=== PATIENT | female | born 1955 | race Caucasian/White ===

== ENCOUNTER 2019-12-07 17:28 | Inpatient (IN) | payer BC, OTHER ==
[2019-12-07] VITALS (8 sets, daily range): BP systolic 111–142; BP diastolic 74–97
[~2019-12-07] VITALS: Ht 167 cm; Wt 74.1 kg
--- NOTE | 2019-12-07 17:57 | NUR ---
PTS PULSE OX 88% ON 4L NC ET OXYGEN INCREASED TO 4LNC
[2019-12-07] MEDS ORDERED: IBUPROFEN 800 MG (MOTRIN) TAB PO ONE (18:00)
[2019-12-07] MEDS ORDERED: ACETAMINOPHEN 325 MG TABLET PO ONE (18:00)
--- NOTE | 2019-12-07 18:04 | ED Cough/URI ---
General Chief Complaint: Respiratory Problems Stated Complaint: SOA Nursing Triage Note: SENT OVER FROM DR BAHENA OFFICE FOR SOA Sepsis Screen: No Definite Risk Source: patient Exam Limitations: no limitations History of Present Illness Date Seen by Provider: Dec 07, 2019 Time Seen by Provider: 18:02 Initial Comments To ER by private vehicle from Dr. Reyna's office with reports of shortness of breath and cough. This has been present for about 2 weeks. Does not have any history of known asthma or COPD or lung disease. She states that she hasn't had fevers but upon arrival here she is febrile at 101. Oxygen saturation 80% on room air upon arrival. She states she has not been around any known ill contacts. has been giving her some of his leftover keflex from a foot infection but denies any improvement. Timing/Duration: constant Severity/Quality: moderate Associated Symptoms: cough, shortness of breath Allergies and Home Medications Allergies Coded Allergies: No Known Drug Allergies (Unverified , 12/07/19) Patient Home Medication List Home Medication List Reviewed: Yes Review of Systems Review of Systems Constitutional: see HPI, chills, fever EENTM: see HPI Respiratory: see HPI, cough Cardiovascular: no symptoms reported Genitourinary: no symptoms reported Musculoskeletal: no symptoms reported Skin: no symptoms reported Psychiatric/Neurological: No Symptoms Reported Hematologic/Lymphatic: No Symptoms Reported Past Jgjzpwm-Wwscgg-Hdmmda Hx Patient Social History Recent Foreign Travel: No Contact w/Someone Who Travel: No Recent Infectious Disease Expo: No Physical Exam Vital Signs - First Documented 12/07/19 17:30 Temp 38.4 Pulse 112 Resp 20 B/P (MAP) 154/94 (114) Pulse Ox 80 O2 Delivery Nasal Cannula O2 Flow Rate 3.00 Capillary Refill : Less Than 3 Seconds Height: '" Weight: lbs. oz. kg; 26.00 BMI Method: General Appearance: WD/WN, no apparent distress, other (oxygen saturation 80% on room air. Up to 89-90% on 3 L.) Eyes: Bilateral Eye Normal Inspection, Bilateral Eye PERRL, Bilateral Eye EOMI Neck: non-tender, full range of motion Respiratory: no accessory muscle use, decreased breath sounds (decreased air movement and crackles on left), other (tachypnea) Cardiovascular: other (tachycardia with a rate of about 105-110) Gastrointestinal: normal bowel sounds, non tender Neurologic/Psychiatric: alert, normal mood/affect, oriented x 3 Skin: normal color, warm/dry Focused Exam Lactate Level 12/07/19 17:50: Lactic Acid Level 1.21 Time of Focused Exam: 20:16 Respiratory: No Respiratory Distress, Other (on bipap, tolerating well, sats at 96-98% ) Cardiovascular: Regular Rate, Rhythm Capillary Refill: NONE Lactic Acid Level Laboratory Tests Test 12/07/19 17:50 Lactic Acid Level 1.21 MMOL/L (0.50-2.00) Within 3hrs of presentation: Admin fluids, Admin ABX, Blood cultures prior to ABX's Progress/Results/Core Measures Suspected Sepsis Recent Fever Within 48 Hours: No Infection Criteria Present: None New/Unexplained Altered Menta: No Sepsis Screen: No Definite Risk SIRS Temperature: Pulse: 112 Respiratory Rate: 20 Laboratory Tests 12/07/19 17:50: White Blood Count 16.3H Blood Pressure 154 /94 Mean: 114 12/07/19 17:50: Lactic Acid Level 1.21 Laboratory Tests 12/07/19 17:50: Creatinine 0.82, Platelet Count 286, Total Bilirubin 1.4H Results/Orders Lab Results Laboratory Tests Test 12/07/19 17:50 12/07/19 17:55 12/07/19 18:13 12/07/19 19:35 Range/Units White Blood Count 16.3 H 4.3-11.0 10^3/uL Red Blood Count 3.98 L 4.35-5.85 10^6/uL Hemoglobin 11.9 11.5-16.0 G/DL Hematocrit 34 L 35-52 % Mean Corpuscular Volume 86 80-99 FL Mean Corpuscular Hemoglobin 30 25-34 PG Mean Corpuscular Hemoglobin Concent 35 32-36 G/DL Red Cell Distribution Width 13.3 10.0-14.5 % Platelet Count 286 130-400 10^3/uL Mean Platelet Volume 11.0 H 7.4-10.4 FL Neutrophils (%) (Auto) 91 H 42-75 % Lymphocytes (%) (Auto) 5 L 12-44 % Monocytes (%) (Auto) 4 0-12 % Eosinophils (%) (Auto) 1 0-10 % Basophils (%) (Auto) 0 0-10 % Neutrophils # (Auto) 14.8 H 1.8-7.8 X 10^3 Lymphocytes # (Auto) 0.8 L 1.0-4.0 X 10^3 Monocytes # (Auto) 0.6 0.0-1.0 X 10^3 Eosinophils # (Auto) 0.2 0.0-0.3 10^3/uL Basophils # (Auto) 0.0 0.0-0.1 10^3/uL Neutrophils % (Manual) 85 % Lymphocytes % (Manual) 5 % Monocytes % (Manual) 5 % Eosinophils % (Manual) 0 % Basophils % (Manual) 0 % Band Neutrophils 5 % Smudge Cells SLIGHT Toxic Granulation 1+ D-Dimer 11.91 H 0.00-0.49 UG/ML Sodium Level 129 L 135-145 MMOL/L Potassium Level 3.5 L 3.6-5.0 MMOL/L Chloride Level 95 L 98-107 MMOL/L Carbon Dioxide Level 21 21-32 MMOL/L Anion Gap 13 5-14 MMOL/L Blood Urea Nitrogen 17 7-18 MG/DL Creatinine 0.82 0.60-1.30 MG/DL Estimat Glomerular Filtration Rate > 60 BUN/Creatinine Ratio 21 Glucose Level 125 H 70-105 MG/DL Lactic Acid Level 1.21 0.50-2.00 MMOL/L Calcium Level 8.8 8.5-10.1 MG/DL Corrected Calcium 9.1 8.5-10.1 MG/DL Total Bilirubin 1.4 H 0.1-1.0 MG/DL Aspartate Amino Transf (AST/SGOT) 662 H 5-34 U/L Alanine Aminotransferase (ALT/SGPT) 494 H 0-55 U/L Alkaline Phosphatase 234 H 40-136 U/L C-Reactive Protein High Sensitivity 38.02 H 0.00-0.50 MG/DL B-Type Natriuretic Peptide 69.3 <100.0 PG/ML Total Protein 6.9 6.4-8.2 GM/DL Albumin 3.6 3.2-4.5 GM/DL Procalcitonin 0.84 H <0.10 NG/ML Coronavirus 2019 ([facility]) Negative Negative Blood Gas Puncture Site UNK Blood Gas Patient Temperature 101.2 Arterial Blood pH 7.45 H 7.37-7.43 Arterial Blood Partial Pressure CO2 36 35-45 MMHG Arterial Blood Partial Pressure O2 58 L 79-93 MMHG Arterial Blood HCO3 24 23-27 MMOL/L Arterial Blood Total CO2 24.9 21.0-31.0 MMOL/L Arterial Blood Oxygen Saturation 82 L 94-100 % Arterial Blood Base Excess 0.5 -2.5-2.5 MMOL/L Arnulfo Test YES-POS Blood Gas Ventilator Setting NO Blood Gas Inspired Oxygen 3L My Orders Orders - GARRETT STEVENS APRN Arterial Blood Gas (12/07/19 17:58) Cbc With Automated Diff (12/07/19 17:58) Comprehensive Metabolic Panel (12/07/19 17:58) Hs C Reactive Protein (12/07/19 17:58) Procalcitonin (Pct) (12/07/19 17:58) BNP (12/07/19 17:58) Chest 1 View, Ap/Pa Only (12/07/19 17:58) Ed Iv/Invasive Line Start (12/07/19 17:58) Acetaminophen Tablet/Caplet (Tylenol T (12/07/19 18:00) Ibuprofen Tablet (Motrin Tablet) (12/07/19 18:00) Fibrin Degradation Products (12/07/19 17:58) Blood Culture (12/07/19 17:58) Lactic Acid Analyzer (12/07/19 17:58) Covid 19 Inhouse Test (12/07/19 18:04) Manual Differential (12/07/19 17:50) Ct Angio Chest W (12/07/19 18:25) Iohexol Injection (Omnipaque 350 Mg/Ml 1 (12/07/19 18:30) Received Contrast (Hold Metformin- Contr (12/07/19 18:30) Ns (Ivpb) (Sodium Chloride 0.9% Ivpb Bag (12/07/19 18:30) Coronavirus Sars-Cov-2 So 2018 (12/07/19 18:48) Cefepime Injection (Maxipime Injection) (12/07/19 19:30) Medications Given in ED Current Medications Medications Dose Ordered Sig/Malka Route Start Time Stop Time Status Last Admin Dose Admin Acetaminophen 650 mg ONCE ONCE PO 12/07/19 18:00 12/07/19 18:01 DC 12/07/19 18:07 650 MG Cefepime HCl 1000 mg/Sterile Water 10 ml @ 200 mls/hr ONCE ONCE IV 12/07/19 19:30 12/07/19 19:32 DC 12/07/19 19:46 200 MLS/HR Ibuprofen 800 mg ONCE ONCE PO 12/07/19 18:00 12/07/19 18:01 DC 12/07/19 18:07 800 MG Iohexol 75 ml ONCE ONCE IV 12/07/19 18:30 12/07/19 18:34 DC 12/07/19 19:04 82 ML Sodium Chloride 100 ml ONCE ONCE IV 12/07/19 18:30 12/07/19 18:34 DC 12/07/19 19:04 100 ML Vital Signs/I&O 12/07/19 12/07/19 17:30 17:30 Temp 38.4 Pulse 112 Resp 20 B/P (MAP) 154/94 (114) Pulse Ox 80 80 O2 Delivery Nasal Cannula Room Air O2 Flow Rate 3.00 Capillary Refill : Less Than 3 Seconds Blood Pressure Mean: 114 Diagnostic Imaging Diagonstic Imaging: Xray Comments NAME: [facility] REC#: [id number] PT STATUS: REG ER : 1955 PHYSICIAN: GARRETT STEVENS ACADEMIC SUPPORT COORDINATOR ADMIT DATE: 12/07/19/ER Draft Date of Exam:12/07/19 CHEST 1 VIEW, AP/PA ONLY EXAMINATION: Chest radiograph, portable AP view. DATE: 12/07/2019 6:20 PM hours. INDICATION: 64-year-old female, cough. Increasing shortness breath. The patient is Covid positive. COMPARISON: None. FINDINGS: There is extensive multifocal airspace consolidation in the left lung. There are predominantly interstitial appearing opacities in the right lung. There is no identified pneumothorax. There is no large pleural effusion. Heart size and mediastinal contours are difficult to evaluate although are grossly unremarkable. IMPRESSION: 1. Extensive multifocal airspace consolidation in the left lung which could relate to multifocal pneumonia or other alveolar consolidative process. 2. Predominantly interstitial appearing opacities in the right lung which could relate to interstitial edema or atypical infectious etiology appears Dictated on workstation # [id number] Dict: 12/07/19 1822 Trans: 12/07/[address] [facility] [id number] Interpreted by: THEO TRIANA MD Electronically signed by: Departure Communication (Admissions) Time/Spoke to Admitting Phy: 19:[address] Godwin, will admit to ICU, treatment dose Lovenox, cefepime plus Levaquin. Consult Dr. Patel and eICU. The patient was about 93- 94% on 3 L nasal cannula. However still quite tachypneic. We will trial BiPAP at 12/5 50% to see how she tolerates it. We'll Impression Primary Impression: Pneumonia Additional Impressions: Respiratory decompensation Person under investigation for COVID-19 Disposition: ADMITTED INPATIENT Condition: Stable Admissions Decision to Admit Reason: Admit from ER (General) Decision to Admit/Date: Dec 07, 2019 Time/Decision to Admit Time: 19:38 GARRETT STEVENS APRN Dec 07, 2019 18:04
[2019-12-07 18:06] LABS: BASOPHILS % (AUTO) 0 % (0-10); EOSINOPHILS # (AUTO) 0.2 10^3/uL (0.0-0.3); EOSINOPHILS % (AUTO) 1 % (0-10); HEMATOCRIT 34 % (35-52); HEMOGLOBIN 11.9 G/DL (11.5-16.0); LYMPHOCYTES # (AUTO) 0.8 X 10^3 (1.0-4.0); LYMPHOCYTES % (AUTO) 5 % (12-44); MEAN CORPUSCULAR HEMOGLOBIN 30 PG (25-34); MEAN CORPUSCULAR HGB CONC 35 G/DL (32-36); MEAN CORPUSCULAR VOLUME 86 FL (80-99); MONOCYTES # (AUTO) 0.6 X 10^3 (0.0-1.0); MONOCYTES % (AUTO) 4 % (0-12); NEUTROPHILS # (AUTO) 14.8 X 10^3 (1.8-7.8); NEUTROPHILS % (AUTO) 91 % (42-75); PLATELET COUNT 286 10^3/uL (130-400); WHITE BLOOD COUNT 16.3 10^3/uL (4.3-11.0)
--- NOTE | 2019-12-07 18:08 | NUR ---
PT UPDATED HER BY PHONE.
[2019-12-07 18:19] LABS: ABG BASE EXCESS 0.5 MMOL/L (-2.5-2.5); ABG OXYGEN SATURATION 82 % (94-100); ABG PCO2 36 MMHG (35-45); ABG PH 7.45 (7.37-7.43); ABG PO2 58 MMHG (79-93); ABG TCO2 24.9 MMOL/L (21.0-31.0)
--- NOTE | 2019-12-07 18:19 | NUR ---
PT PULSE OX 90% ON 5L ET PT PUT IN PRONE POSITION.
[2019-12-07 18:22] LABS: ALANINE AMINOTRANSFERASE 494 U/L (0-55); ALBUMIN 3.6 GM/DL (3.2-4.5); ALKALINE PHOSPHATASE 234 U/L (40-136); BILIRUBIN,TOTAL 1.4 MG/DL (0.1-1.0); BUN/CREATININE RATIO 21; CALCIUM 8.8 MG/DL (8.5-10.1); CARBON DIOXIDE 21 MMOL/L (21-32); CHLORIDE 95 MMOL/L (98-107); CREATININE SERUM 0.82 MG/DL (0.60-1.30); GFR ESTIMATED > 60; GLUCOSE 125 MG/DL (70-105); POTASSIUM 3.5 MMOL/L (3.6-5.0); SODIUM 129 MMOL/L (135-145); TOTAL PROTEIN 6.9 GM/DL (6.4-8.2)
--- NOTE | 2019-12-07 18:22 | NUR ---
PT'S PULSE OX 94% ON 5L NC IN PRONE POSITION.
[2019-12-07 18:29] LABS: NEUTROPHILS % (MANUAL) 85 %
[2019-12-07 18:30] LABS: ALLENS TEST YES-POS; INSPIRED O2 3L; PATIENT TEMP 101.2; VENTILATOR NO
[2019-12-07 18:30] LABS: BAND NEUTROPHILS 5 %; BASOPHILS % (MANUAL) 0 %; EOSINOPHILS % (MANUAL) 0 %; LYMPHOCYTES % (MANUAL) 5 %; MONOCYTES % (MANUAL) 5 %; SMUDGE CELLS SLIGHT; TOXIC GRANULATION/VACUOLAZATIO 1+
[2019-12-07] MEDS ORDERED: NS 100 ML (IVPB) BAG IV ONE (18:30)
[2019-12-07] MEDS ORDERED: IOHEXOL 350 MG/ML 100 ML (OMNIPAQUE 350) VIAL IV ONE (18:30)
[2019-12-07] MEDS ORDERED: HOLD METFORMIN - RECEIVED CONTRAST 20 ML VIAL IV SCH (18:30)
--- NOTE | 2019-12-07 18:36 | Diagnostic Imaging Report ---
EXAMINATION: Chest radiograph, portable AP view. DATE: 12/07/2019 6:20 PM hours. INDICATION: 64-year-old female, cough. Increasing shortness breath. The patient is Covid positive. COMPARISON: None. FINDINGS: There is extensive multifocal airspace consolidation in the left lung. There are predominantly interstitial appearing opacities in the right lung. There is no identified pneumothorax. There is no large pleural effusion. Heart size and mediastinal contours are difficult to evaluate although are grossly unremarkable. IMPRESSION: 1. Extensive multifocal airspace consolidation in the left lung which could relate to multifocal pneumonia or other alveolar consolidative process. 2. Predominantly interstitial appearing opacities in the right lung which could relate to interstitial edema or atypical infectious etiology appears Dictated by: Dictated on workstation # [id number]
--- NOTE | 2019-12-07 18:44 | NUR ---
GARRETT TALKING TO PT'S AT THIS TIME.
--- NOTE | 2019-12-07 18:45 | NUR ---
PT STATES SHE CAN NOT TOLERATE LAYING ON HER STOMACH BECAUSE SHE IS HOT. PT TURNED BACK OVER.
--- NOTE | 2019-12-07 19:00 | NUR ---
REPORT GIVEN TO TERRI. DEL CID
--- NOTE | 2019-12-07 19:22 | Diagnostic Imaging Report ---
INDICATION: Shortness of air, dyspnea, hypoxia, elevated d-dimer. EXAMINATION: CT angiogram chest with contrast, 12/07/2019. FINDINGS: There are no central or proximal segmental pulmonary emboli. The thoracic aorta is unremarkable. There is no pericardial effusion. There is a small left pleural effusion. There are diffuse airspace opacities throughout much of the left upper lobe, especially towards the apex with diffuse airspace opacities in the left lower lobe and portions of the lingula as well. These findings are felt to represent diffuse infiltrate/pneumonia. A few air bronchograms are also present. Within the right lung there are several scattered nodules throughout the right lower lobe. A few small nodules also noted in the medial aspect of the right middle lobe. There is a small hiatal hernia. Scattered prominent lymph nodes in the mediastinum and left hilum likely reactive but should be followed to assure resolution. Visualized upper abdominal structures demonstrate no acute abnormality. The osseous structures are unremarkable within the thoracic spine. Within the lumbar spine there is compression deformity which is likely old but clinical exclusion of any point tenderness to the region recommended. IMPRESSION: 1. No central or proximal segmental pulmonary emboli. 2. Diffuse infiltrates probably throughout the left lung with air bronchograms in the lung apex. Follow-up recommended to assure complete resolution. 3. Multiple nodules throughout the right lung. Metastatic disease would be the primary consideration. 4. Adenopathy in the mediastinum and left hilum which could be reactive with a metastatic process not excluded. 5. Compression fracture in the upper lumbar spine, age indeterminate. Dictated by: Dictated on workstation # [id number]
[2019-12-07] MEDS ORDERED: CEFEPIME INJECTION 1,000 MG in WATER (STERILE) FOR INJECTION 10 ML IV ONE (19:30)
[2019-12-07] MEDS ORDERED: LACTATED RINGERS 1,000 ML IV SCH (20:30)
[2019-12-07] MEDS ORDERED: ACETAMINOPHEN 325 MG TABLET PO PRN (21:15)
[2019-12-07] MEDS ORDERED: IBUPROFEN 600 MG (MOTRIN) TAB PO PRN (21:15)
[2019-12-07] MEDS ORDERED: ONDANSETRON 4 MG/2 ML (SDV) Z0FRAN IV PRN (21:15)
[2019-12-07] MEDS ORDERED: LORazepam INJ 2 MG/ML (ATIVAN) VIAL IV PRN (21:15)
[2019-12-07] MEDS ORDERED: LEVOFLOXACIN 750 MG/D5W 150 ML PRE-MIX IV SCH (21:33)
[2019-12-07] MEDS: LACTATED RINGERS 1,000 ML IV SCH (21:36)
[2019-12-07] MEDS: methylPREDNISolone 125 MG (Solu-MEDROL) VIAL IV SCH (23:32)
[2019-12-08] VITALS (23 sets, daily range): BP systolic 108–144; BP diastolic 76–95
[2019-12-08] MEDS: RT-ALBUTEROL INHALER HFA (VENTOLIN HFA) 18 GM IH SCH ×6 (02:44→22:22)
[2019-12-08 03:32] LABS: BASOPHILS % (AUTO) 0 % (0-10); EOSINOPHILS % (AUTO) 0 % (0-10); HEMATOCRIT 34 % (35-52); HEMOGLOBIN 11.9 G/DL (11.5-16.0); LYMPHOCYTES # (AUTO) 0.6 X 10^3 (1.0-4.0); LYMPHOCYTES % (AUTO) 5 % (12-44); MEAN CORPUSCULAR HEMOGLOBIN 30 PG (25-34); MEAN CORPUSCULAR HGB CONC 35 G/DL (32-36); MEAN CORPUSCULAR VOLUME 87 FL (80-99); MEAN PLATELET VOLUME 10.8 FL (7.4-10.4); MONOCYTES # (AUTO) 0.4 X 10^3 (0.0-1.0); MONOCYTES % (AUTO) 3 % (0-12); NEUTROPHILS # (AUTO) 12.1 X 10^3 (1.8-7.8); NEUTROPHILS % (AUTO) 93 % (42-75); PLATELET COUNT 257 10^3/uL (130-400); WHITE BLOOD COUNT 13.1 10^3/uL (4.3-11.0)
[2019-12-08 03:56] LABS: ALANINE AMINOTRANSFERASE 452 U/L (0-55); ALBUMIN 3.5 GM/DL (3.2-4.5); ALKALINE PHOSPHATASE 259 U/L (40-136); BILIRUBIN,TOTAL 1.1 MG/DL (0.1-1.0); BUN/CREATININE RATIO 24; CALCIUM 9.2 MG/DL (8.5-10.1); CARBON DIOXIDE 21 MMOL/L (21-32); CHLORIDE 99 MMOL/L (98-107); CREATININE SERUM 0.79 MG/DL (0.60-1.30); GFR ESTIMATED > 60; GLUCOSE 117 MG/DL (70-105); MAGNESIUM 2.4 MG/DL (1.6-2.4); POTASSIUM 3.3 MMOL/L (3.6-5.0); SODIUM 134 MMOL/L (135-145)
[2019-12-08] MEDS: LACTATED RINGERS 1,000 ML IV SCH ×4 (04:09→23:39)
[2019-12-08] MEDS: POTASSIUM CL 10MEQ/50ML IVPB 50 ML IV SCH (04:26)
[2019-12-08] MEDS: MAGNESIUM 1 GM/100 ML IVPB 100 ML IV SCH (04:27)
[2019-12-08] MEDS: KCL 20 MEQ TAB (K-DUR) PO SCH (04:27)
[2019-12-08] MEDS: methylPREDNISolone 125 MG (Solu-MEDROL) VIAL IV SCH ×2 (05:03→12:19)
[2019-12-08] MEDS ORDERED: KCL 20 MEQ TAB (K-DUR) PO ONE ×2 (07:30→09:30)
[2019-12-08] MEDS: CEFEPIME 2,000 MG/SWFI 20 ML IV PUSH IV SCH ×4 (09:00→20:09)
[2019-12-08] MEDS: ENOXAPARIN 80 MG/0.8 ML (LOVENOX) SYR SC SCH ×2 (09:00→20:10)
--- NOTE | 2019-12-08 12:04 | Diagnostic Imaging Report ---
PROCEDURE: US Venous Lower Ext Paulo. TECHNIQUE: Multiple real-time grayscale images were obtained over the lower extremities in various projections, bilaterally. Additional duplex Doppler and color Doppler images were also obtained. INDICATION: Elevated d-dimer. FINDINGS: There is no evidence of brighter left lower extremity DVT. Both lower extremity deep venous systems demonstrate normal compressibility with normal response to augmentation and Valsalva. No fluid collection or mass is detected. IMPRESSION: No evidence of right or left lower extremity DVT. Dictated by: Dictated on workstation # [id number]
--- NOTE | 2019-12-08 16:15 | History & Physical-Hospitalist ---
History of Present Illness HPI/Chief Complaint Lesly Kumari is a 64-year-old female with no known past medical history who presented with shortness of breath. She is also been having a cough. She has been having fevers. She reports she has had a decreased taste sensation. She denies any chest pain. She denies any abdominal pain. She denies any nausea or vomiting. She denies any diarrhea. She has no other complaints or concerns. She says she does not take any medications. She follows with Dr. Reyna. Source: patient Exam Limitations: no limitations Date Seen 12/08/19 Time Seen by a Provider: 10:50 Attending Physician Desi Godwin DO PCP No,Local Physician Referring Physician Date of Admission Dec 07, 2019 at 19:35 Home Medications & Allergies Home Medications Reviewed patient Home Medication Reconciliation performed by pharmacy medication reconciliations proof technician and/or nursing. Patients Allergies have been reviewed. Allergies Allergies Coded Allergies No Known Drug Allergies (Unverified12/07/19) Past Wktcrvi-Wpwbra-Mcjeuz Hx Past Med/Social Hx: Reviewed Nursing Past Med/Soc Hx Patient Social History Alcohol Use: Occasionally Uses Recreational Drug Use: No Smoking Status: Never a Smoker Recent Foreign Travel: No Contact w/other who traveled: No Recent Hopitalizations: No Recent Infectious Disease Expo: No Seasonal Allergies Seasonal Allergies: No Past Medical History Surgeries: Appendectomy, Orthopedic, Tonsillectomy Cardiac: Hypertension Review of Systems Constitutional: fever EENTM: no symptoms reported Respiratory: cough, short of breath Cardiovascular: no symptoms reported Gastrointestinal: no symptoms reported Genitourinary: no symptoms reported Musculoskeletal: no symptoms reported Skin: no symptoms reported Psychiatric/Neurological: No Symptoms Reported Physical Exam Physical Exam Vital Signs Vital Signs - First Documented 12/07/19 12/07/19 17:30 22:18 Temp 38.4 Pulse 112 Resp 20 B/P (MAP) 154/94 (114) Pulse Ox 80 O2 Delivery Nasal Cannula O2 Flow Rate 3.00 FiO2 40 Capillary Refill : Less Than 3 Seconds Height, Weight, BMI Height: '" Weight: lbs. oz. kg; 26.00 BMI Method: General Appearance: No Apparent Distress, WD/WN HEENT: PERRL/EOMI, Pharynx Normal Neck: Normal Inspection, Supple Respiratory: No Respiratory Distress, Crackles, Decreased Breath Sounds, Other (wearing nasal cannula) Cardiovascular: Regular Rate, Rhythm, No Edema, No Murmur Gastrointestinal: Normal Bowel Sounds, Non Tender, Soft Extremity: Normal Inspection, Non Tender, No Pedal Edema Neurologic/Psychiatric: Alert, Oriented x3, No Motor/Sensory Deficits, Normal M ood/Affect Skin: Normal Color, Warm/Dry Results Results/Procedures Labs Laboratory Tests 12/07/19 17:50 12/08/19 03:00 Patient resulted labs reviewed. Imaging: Reviewed Imaging Films, Reviewed Imaging Report Assessment/Plan Admission Diagnosis Sepsis due to pneumonia Admission Status: Inpatient Order (span 2 midnights) Reason for Inpatient Admission: PNA requiring IV antibiotics Assessment and Plan Sepsis due to pneumonia Acute respiratory failure with hypoxia Pulmonary nodules Elevated LFTs Elevated d-dimer SIRS+ with fever, tachycardia, and leukocytosis Chest x-ray showed a large left-sided consolidation Lactic acid normal d-dimer significantly elevated procalcitonin elevated LFTs elevated CT showed no pulmonary embolism, right-sided pulmonary nodules, mediastinal lymphadenopathy Started on therapeutic Lovenox Obtain lower extremity ultrasound to rule out DVT continue supplemental oxygen as needed Started on cefepime and Levaquin Discontinue Levaquin Continue IV fluids, decrease rate Consult pulmonology, appreciate assistance Diagnosis/Problems Diagnosis/Problems (1) Sepsis due to pneumonia Status: Acute (2) Acute respiratory failure with hypoxia Status: Acute (3) Elevated LFTs Status: Acute (4) Elevated d-dimer Status: Acute (5) Pulmonary nodules Status: Acute (6) Mediastinal lymphadenopathy Status: Acute Clinical Quality Measures DVT/VTE Risk/Contraindication: Risk Factor Score Per Nursin RFS Level Per Nursing on Admit: 3=High FRANCO LAINEZ MD Dec 08, 2019 16:15
[2019-12-09] VITALS (17 sets, daily range): BP systolic 131–154; BP diastolic 81–106
[2019-12-09] MEDS: RT-ALBUTEROL INHALER HFA (VENTOLIN HFA) 18 GM IH SCH ×5 (02:44→19:32)
--- NOTE | 2019-12-09 04:52 | Pulmonary Consultation ---
History of Present Illness History of Present Illness Date Seen by Provider: Dec 09, 2019 Time Seen by Provider: 04:44 Date of Admission History of Present Illness 64yo presented secondary to worsening SOB, fevers, and cough. Pt was dx with sepsis secondary to pneumonia while in the ED. She was admitted to ICU for treatment. Denies CP/Abd pain. No N/V/D. Allergies and Home Medications Allergies Coded Allergies: No Known Drug Allergies (Unverified , 12/07/19) Past Dwgdwyw-Cizkur-Ydtclv Hx Past Med/Social Hx: Reviewed Nursing Past Med/Soc Hx Patient Social History Alcohol Use: Occasionally Uses Recreational Drug Use: No Smoking Status: Never a Smoker Recent Foreign Travel: No Contact w/Someone Who Travel: No Recent Infectious Disease Expo: No Recent Hopitalizations: No Seasonal Allergies Seasonal Allergies: No Past Medical History Appendectomy, Orthopedic, Tonsillectomy Respiratory: No Cardiac: Yes Hypertension Neurological: No Genitourinary: No Gastrointestinal: No Musculoskeletal: No Endocrine: No HEENT: No Cancer: No Psychosocial: No Integumentary: No Review of Systems Time Seen by Provider: 04:48 Constitutional: Fever, Chills, Sweats, Weakness, Malaise, Other Eyes: No: Pain, Vision change, Conjunctivae inflammation, Eyelid inflammation, Other, Redness ENT: Nose congestion; No: Ear pain, Ear discharge, Nose pain, Nose discharge, Mouth pain, Mouth swelling, Throat pain, Throat swelling, Other Respiratory: Cough, Shortness of breath, SOB with excertion, Sputum; No: Wheezing, Hemoptysis, Pleuritic Pain Cardiovascular: Palpitations, Paroxysmal Noc. Dyspnea, Lt Headedness; No: Chest Pain, Orthopnea, Edema, Other Gastrointestinal: No: Nausea, Vomiting, Abdominal Pain, Diarrhea, Constipation, Melena, Hematochezia, Other Genitourinary: No Dysuria, No Frequency, No Incontinence, No Hematuria, No Retention, No Other Sepsis Event Evaluation Height, Weight, BMI Height: '" Weight: lbs. oz. kg; 26.00 BMI Method: Exam Exam Vital Signs Date Time Temp Pulse Resp B/P (MAP) Pulse Ox O2 Delivery O2 Flow Rate FiO2 12/09/19 04:00 37.0 Nasal Cannula 4.00 12/09/19 04:00 96 Nasal Cannula 4.00 12/09/19 03:00 79 31 131/93 (106) 94 Nasal Cannula 4.00 12/09/19 02:44 94 Nasal Cannula 3.00 12/09/19 02:00 78 25 146/105 (119) 96 Nasal Cannula 4.00 12/09/19 01:00 75 26 146/93 (110) 94 Nasal Cannula 4.00 12/09/19 01:00 80 12/09/19 00:00 36.4 12/09/19 00:00 78 28 146/106 (119) 94 Nasal Cannula 4.00 12/08/19 23:40 95 Nasal Cannula 4.00 12/08/19 23:00 80 35 144/94 (111) 96 Nasal Cannula 4.00 12/08/19 22:22 95 Nasal Cannula 3.00 12/08/19 22:00 83 34 144/94 (111) 95 Nasal Cannula 4.00 12/08/19 21:00 86 38 134/85 (101) 94 Nasal Cannula 4.00 12/08/19 20:00 36.0 84 41 136/89 (105) 94 Nasal Cannula 4.00 12/08/19 20:00 94 Nasal Cannula 4.00 12/08/19 19:00 91 12/08/19 19:00 89 29 136/85 (102) 90 Nasal Cannula 3.00 12/08/19 18:57 91 Nasal Cannula 3.00 12/08/19 18:00 90 22 141/81 (101) 90 Nasal Cannula 3.00 12/08/19 17:00 95 31 89 Nasal Cannula 3.00 12/08/19 16:00 36.4 12/08/19 16:00 87 29 128/93 (105) 89 Nasal Cannula 3.00 12/08/19 16:00 Nasal Cannula 3.00 12/08/19 15:10 93 Nasal Cannula 3.00 12/08/19 15:00 88 24 115/87 (96) 88 Nasal Cannula 3.00 12/08/19 14:00 98 22 121/85 (97) 89 Nasal Cannula 3.00 12/08/19 13:00 87 28 117/93 (101) 90 Nasal Cannula 3.00 12/08/19 13:00 88 12/08/19 12:00 Nasal Cannula 3.00 12/08/19 12:00 36.8 12/08/19 12:00 81 28 128/85 (99) 90 Nasal Cannula 3.00 12/08/19 11:00 90 15 132/90 (104) 93 Nasal Cannula 3.00 12/08/19 10:52 94 Nasal Cannula 3.00 12/08/19 10:00 85 34 121/85 (97) 92 Nasal Cannula 3.00 12/08/19 09:00 83 38 134/88 (103) 90 Nasal Cannula 3.00 12/08/19 08:00 Nasal Cannula 3.00 12/08/19 08:00 37.1 12/08/19 08:00 83 28 124/95 (105) 90 Nasal Cannula 3.00 12/08/19 07:40 93 Nasal Cannula 3.00 12/08/19 07:04 75 12/08/19 07:00 73 22 110/76 (87) 92 Nasal Cannula 3.00 12/08/19 06:56 36.3 12/08/19 06:27 35.8 12/08/19 06:00 73 35 117/76 (90) 91 Nasal Cannula 3.00 12/08/19 05:00 80 28 122/80 (94) 93 Nasal Cannula 3.00 I & O 12/09/19 07:00 Intake Total 2395 ml Output Total 1475 ml Balance 920 ml Height & Weight Height: '" Weight: lbs. oz. kg; 26.00 BMI Method: General Appearance: No Apparent Distress, WD/WN HEENT: PERRL/EOMI, Pharynx Normal Neck: Normal Inspection, Supple Respiratory: No Respiratory Distress, Crackles, Decreased Breath Sounds, Other (wearing nasal cannula) Cardiovascular: Regular Rate, Rhythm, No Edema, No Murmur Capillary Refill: Less Than 3 Seconds Gastrointestinal: normal bowel sounds, non tender Extremity: Normal Inspection, Non Tender, No Pedal Edema Neurologic/Psychiatric: Alert, Oriented x3, No Motor/Sensory Deficits, Normal Mood/Affect Skin: Normal Color, Warm/Dry Results Lab Laboratory Tests 12/07/19 17:50 12/08/19 03:00 Assessment/Plan Assessment/Plan Extensive left sided pneumonia with sepsis -IVF -Continue Cefepime -Will need repeat CT of chest 8wks after Abx to ensure resolution -COVID is negative -Urine strep and legionella ag are pending -Parra cultures pending Lung nodules with MLA -Will continue to follow as out patient Elevated LFTs -Monitor DA MATTHEWS DO Dec 09, 2019 04:51
[2019-12-09 05:51] LABS: BASOPHILS % (AUTO) 0 % (0-10); EOSINOPHILS # (AUTO) 0.1 10^3/uL (0.0-0.3); EOSINOPHILS % (AUTO) 0 % (0-10); HEMATOCRIT 33 % (35-52); HEMOGLOBIN 11.3 G/DL (11.5-16.0); LYMPHOCYTES # (AUTO) 0.9 X 10^3 (1.0-4.0); LYMPHOCYTES % (AUTO) 5 % (12-44); MEAN CORPUSCULAR HEMOGLOBIN 30 PG (25-34); MEAN CORPUSCULAR HGB CONC 35 G/DL (32-36); MEAN CORPUSCULAR VOLUME 88 FL (80-99); MEAN PLATELET VOLUME 11.5 FL (7.4-10.4); MONOCYTES # (AUTO) 0.9 X 10^3 (0.0-1.0); MONOCYTES % (AUTO) 5 % (0-12); NEUTROPHILS # (AUTO) 17.4 X 10^3 (1.8-7.8); NEUTROPHILS % (AUTO) 90 % (42-75); PLATELET COUNT 391 10^3/uL (130-400); WHITE BLOOD COUNT 19.2 10^3/uL (4.3-11.0)
[2019-12-09] MEDS: POTASSIUM CL 10MEQ/50ML IVPB 50 ML IV SCH (05:51)
[2019-12-09] MEDS: KCL 20 MEQ TAB (K-DUR) PO SCH (05:51)
[2019-12-09] MEDS: MAGNESIUM 1 GM/100 ML IVPB 100 ML IV SCH (05:51)
[2019-12-09 06:07] LABS: CHLORIDE 105 MMOL/L (98-107); POTASSIUM 4.8 MMOL/L (3.6-5.0); SODIUM 137 MMOL/L (135-145)
[2019-12-09 06:08] LABS: CALCIUM 8.9 MG/DL (8.5-10.1)
[2019-12-09 06:09] LABS: GLUCOSE 141 MG/DL (70-105)
[2019-12-09 06:10] LABS: CARBON DIOXIDE 21 MMOL/L (21-32)
[2019-12-09 06:12] LABS: PHOSPHORUS 2.4 MG/DL (2.3-4.7)
[2019-12-09 06:13] LABS: CREATININE SERUM 0.69 MG/DL (0.60-1.30); GFR ESTIMATED > 60
[2019-12-09 06:14] LABS: BUN/CREATININE RATIO 36
[2019-12-09 06:15] LABS: MAGNESIUM 2.2 MG/DL (1.6-2.4)
[2019-12-09] MEDS: predniSONE 20 MG TAB PO SCH (06:33)
[2019-12-09] MEDS: CEFEPIME 2,000 MG/SWFI 20 ML IV PUSH IV SCH ×4 (06:33→18:21)
--- NOTE | 2019-12-09 07:04 | Diagnostic Imaging Report ---
Indication: Hypoxia. Compared: 12/07/2019 Findings: Extensive infiltrate and airspace disease in the left lung appears similar to the prior disease severity of the left base perhaps slightly improved. There is some increasing opacity in the periphery of the right upper lobe suspicious for developing pneumonia on that side as well. Impression: Extensive infiltrate in the left lung perhaps slightly improved at its basilar portion, however I suspect there is developing pneumonia in the mid to upper right lung laterally as a new finding. Dictated by: Dictated on workstation # [id number]
[2019-12-09] MEDS: ENOXAPARIN 80 MG/0.8 ML (LOVENOX) SYR SC SCH (08:01)
[2019-12-09] MEDS: LACTATED RINGERS 1,000 ML IV SCH ×2 (08:01→18:26)
[2019-12-09] MEDS: FAMOTIDINE 20 MG (PEPCID) TABLET PO SCH ×2 (10:00→20:41)
[2019-12-09] MEDS ORDERED: GARL400T14 PO (10:30)
[2019-12-09] MEDS ORDERED: MULT-1136 PO (10:30)
[2019-12-09] MEDS ORDERED: OMEG-109 PO (10:30)
[2019-12-09] MEDS ORDERED: VITA200C60 PO (10:30)
--- NOTE | 2019-12-09 10:34 | NUR ---
SPOKE WITH THE PT TO COMPLETE THE MED REC PT DENIES TAKING ANY PRESCRIPTION MEDICATIONS OTC MEDS: MTV VIT E FISH OIL GARLIC
[2019-12-09 10:47] LABS: BILIRUBIN,URINE NEGATIVE (NEGATIVE); CLARITY,URINE CLEAR; COLOR,URINE YELLOW; GLUCOSE, URINE (UA) 2+ (NEGATIVE); KETONES,URINE NEGATIVE (NEGATIVE); LEUKOCYTE ESTERASE ,URINE NEGATIVE (NEGATIVE); NITRITE,URINE NEGATIVE (NEGATIVE); PH,URINE 6.5 (5-9); PROTEIN,URINE 2+ (NEGATIVE)
[2019-12-09 11:02] LABS: BACTERIA,URINE FEW /HPF
[2019-12-09 11:03] LABS: AMORPHOUS SEDIMENT,UR FEW AMOR URATES /LPF; GRANULAR CASTS,URINE 0-2 /LPF; HYALINE CASTS, URINE 0-2 /LPF
[2019-12-09] MEDS ORDERED: CARVEDILOL 6.25 MG (COREG) TAB PO NR (11:45)
[2019-12-09] MEDS ORDERED: hydrALAZINE (APESOLINE) 20 MG/ML VIAL IV PRN (11:45)
--- NOTE | 2019-12-09 11:50 | Progress Note - Hospitalist ---
Subjective HPI/CC On Admission Date Seen by Provider: Dec 09, 2019 Time Seen by Provider: 09:20 Lesly Kumari is a 64-year-old female with no known past medical history who presented with shortness of breath. She is also been having a cough. She has been having fevers. She reports she has had a decreased taste sensation. She d enies any chest pain. She denies any abdominal pain. She denies any nausea or vomiting. She denies any diarrhea. She has no other complaints or concerns. She says she does not take any medications. She follows with Dr. Reyna. Subjective/Events-last exam She reports feeling better today. She is feeling less short of breath. She denies any fevers. She denies any cough. She denies any abdominal pain, nausea, or vomiting. She has no other complaints or concerns. Focused Exam Lactate Level 12/07/19 17:50: Lactic Acid Level 1.21 Time of Focused Exam: 20:16 Objective Exam Vital Signs Vital Signs Date Time Temp Pulse Resp B/P (MAP) Pulse Ox O2 Delivery O2 Flow Rate FiO2 12/09/19 10:18 96 Nasal Cannula 3.00 12/09/19 10:00 112 35 154/100 (118) 12/09/19 08:00 36.4 12/07/19 23:52 40 Capillary Refill : Less Than 3 Seconds General Appearance: No Apparent Distress, Anxious HEENT: PERRL/EOMI, Pharynx Normal Neck: Normal Inspection, Supple Respiratory: Lungs Clear, Normal Breath Sounds, No Respiratory Distress Cardiovascular: Regular Rate, Rhythm, No Edema, No Murmur Gastrointestinal: Normal Bowel Sounds, Non Tender, Soft Extremity: Normal Inspection, Non Tender, No Pedal Edema Neurologic/Psychiatric: Alert, Oriented x3, No Motor/Sensory Deficits, Normal Mood/Affect Skin: Warm/Dry, Erythema (facial flushing) Results/Procedures Lab Laboratory Tests 12/09/19 05:10 Patient resulted labs reviewed. Imaging: Reviewed Imaging Films, Reviewed Imaging Report Assessment/Plan Assessment and Plan Assess & Plan/Chief Complaint Sepsis due to pneumonia Acute respiratory failure with hypoxia Pulmonary nodules Elevated LFTs Elevated d-dimer CT showed no pulmonary embolism, right-sided pulmonary nodules, mediastinal lym phadenopathy lower extremity ultrasound showed no evidence of DVT transition to prophylactic dose Lovenox continue supplemental oxygen as needed continue cefepime Continue IV fluids, decrease rate Consult pulmonology, appreciate assistance planning for outpatient follow-up for further evaluation of nodules and lymphadenopathy hypertension BP elevated Begin Coreg Hydralazine as needed DVT prophylaxis: Lovenox Diagnosis/Problems Diagnosis/Problems (1) Sepsis due to pneumonia Status: Acute (2) Acute respiratory failure with hypoxia Status: Acute (3) Elevated LFTs Status: Acute (4) Elevated d-dimer Status: Acute (5) Pulmonary nodules Status: Acute (6) Mediastinal lymphadenopathy Status: Acute Clinical Quality Measures DVT/VTE Risk/Contraindication: Risk Factor Score Per Nursin RFS Level Per Nursing on Admit: 3=High FRANCO LAINEZ MD Dec 09, 2019 11:50
[2019-12-09] MEDS: CARVEDILOL 6.25 MG (COREG) TAB PO SCH (20:41)
--- NOTE | 2019-12-09 21:25 | NUR ---
PT. TRANSFERRED DOWN FROM ICU. ASSUMING PATIENT CARE AT THIS TIME. RECEIVED REPORT FROM OLGA DEL CID
[2019-12-10] MEDS ORDERED: RT-ALBUTEROL INHALER HFA (VENTOLIN HFA) 18 GM IH SCH (03:00)
[2019-12-10 04:05] VITALS: BP 139/86
[2019-12-10 06:16] LABS: BASOPHILS % (AUTO) 0 % (0-10); EOSINOPHILS # (AUTO) 0.1 10^3/uL (0.0-0.3); EOSINOPHILS % (AUTO) 1 % (0-10); HEMATOCRIT 30 % (35-52); HEMOGLOBIN 9.8 G/DL (11.5-16.0); LYMPHOCYTES # (AUTO) 1.4 X 10^3 (1.0-4.0); LYMPHOCYTES % (AUTO) 9 % (12-44); MEAN CORPUSCULAR HEMOGLOBIN 30 PG (25-34); MEAN CORPUSCULAR HGB CONC 33 G/DL (32-36); MEAN CORPUSCULAR VOLUME 89 FL (80-99); MEAN PLATELET VOLUME 10.8 FL (7.4-10.4); MONOCYTES # (AUTO) 0.9 X 10^3 (0.0-1.0); MONOCYTES % (AUTO) 6 % (0-12); NEUTROPHILS % (AUTO) 84 % (42-75); PLATELET COUNT 421 10^3/uL (130-400); WHITE BLOOD COUNT 14.4 10^3/uL (4.3-11.0)
[2019-12-10] MEDS ORDERED: WATER (STERILE) FOR INJECTION 20 ML ONE (06:28)
[2019-12-10] MEDS ORDERED: CEFEPIME 2 GM (MAXIPIME) VIAL ONE (06:28)
[2019-12-10] MEDS: predniSONE 20 MG TAB PO SCH (06:38)
[2019-12-10 06:39] LABS: CHLORIDE 107 MMOL/L (98-107); POTASSIUM 4.2 MMOL/L (3.6-5.0); SODIUM 139 MMOL/L (135-145)
[2019-12-10] MEDS: CEFEPIME 2,000 MG/SWFI 20 ML IV PUSH IV SCH ×2 (06:39)
[2019-12-10 06:40] LABS: CALCIUM 8.4 MG/DL (8.5-10.1)
[2019-12-10] MEDS: POTASSIUM CL 10MEQ/50ML IVPB 50 ML IV SCH (06:40)
[2019-12-10 06:41] LABS: GLUCOSE 96 MG/DL (70-105)
[2019-12-10] MEDS: KCL 20 MEQ TAB (K-DUR) PO SCH (06:41)
[2019-12-10 06:42] LABS: CARBON DIOXIDE 23 MMOL/L (21-32)
[2019-12-10 06:44] LABS: PHOSPHORUS 2.2 MG/DL (2.3-4.7)
[2019-12-10 06:45] LABS: CREATININE SERUM 0.63 MG/DL (0.60-1.30); GFR ESTIMATED > 60
[2019-12-10 06:46] LABS: BUN/CREATININE RATIO 35
[2019-12-10 06:47] LABS: MAGNESIUM 1.9 MG/DL (1.6-2.4)
[2019-12-10] MEDS: MAGNESIUM 1 GM/100 ML IVPB 100 ML IV SCH (06:52)
[2019-12-10 08:00] VITALS: BP 137/88
[2019-12-10] MEDS ORDERED: ENOXAPARIN 40 MG/0.4 ML (LOVENOX) SYR SC SCH (08:00)
[2019-12-10] MEDS: CARVEDILOL 6.25 MG (COREG) TAB PO SCH (08:22)
[2019-12-10] MEDS: FAMOTIDINE 20 MG (PEPCID) TABLET PO SCH (08:22)
[2019-12-10] MEDS: LACTATED RINGERS 1,000 ML IV SCH (08:23)
[2019-12-10 08:35] LABS: ALBUMIN 2.8 GM/DL (3.2-4.5)
[2019-12-10 08:38] LABS: TOTAL PROTEIN 5.1 GM/DL (6.4-8.2)
[2019-12-10 08:40] LABS: BILIRUBIN,TOTAL 0.5 MG/DL (0.1-1.0)
[2019-12-10 08:44] LABS: BILIRUBIN,DIRECT 0.4 MG/DL (0.0-0.3); BILIRUBIN,INDIRECT 0.1 MG/DL
[2019-12-10 09:01] VITALS: BP 137/88
[2019-12-10] MEDS ORDERED: CEFD300C3 PO (11:48)
[2019-12-10] MEDS ORDERED: CARV6.252 PO (11:48)
[2019-12-10 12:05] VITALS: BP 165/94
--- NOTE | 2019-12-10 12:20 | NUR ---
after 30 mins of being on RA pt SpO2 was 85%. at this time pt was placed on 3LNC with adequate SpO2 for the remainder of the walk study. Addendum: 12/10/19 at 1220 by ТАТЬЯНА PAYNE RT Amended: Links added.
--- NOTE | 2019-12-10 17:16 | Discharge Summary ---
Discharge Summary Hospital Course Was the Problem List Reviewed?: Yes Problems/Dx: (1) Sepsis due to pneumonia Status: Acute (2) Acute respiratory failure with hypoxia Status: Acute (3) Elevated LFTs Status: Acute (4) Elevated d-dimer Status: Acute (5) Pulmonary nodules Status: Acute (6) Mediastinal lymphadenopathy Status: Acute Hospital Course Date of Admission: Dec 07, 2019 at 19:35 Admission Diagnosis : sepsis due to pneumonia Family Physician/Provider: No,Local Physician Date of Discharge: 12/10/19 Discharge Diagnosis: sepsis due to pneumonia Hospital Course: Lesly Kumari is a 64-year-old female with no known past medical history who presented with sepsis due to pneumonia. She was started on IV antibiotics and improved quickly. She did remain on the supplemental oxygen and required 3 L continuously at the time of discharge, so she was set up with home oxygen. She likely has had chronic hypoxia as she did have evidence of clubbing. Her imaging also showed a multiple pulmonary nodules and mediastinal lymphadenopathy which will be followed up by Dr. Patel as an outpatient. She was set up with a follow-up appointment and will have repeat imaging. She did have a significantly elevated d-dimer, but imaging showed no pulmonary embolism or lower extremity DVT. She tested negative for COVID. She was also found to have elevated liver enzymes which trended downward. She was persistently hypertensive and was started on Coreg. She was instructed to follow up with her primary care physician, Dr. Pacheco, and about a week. Labs and Pending Lab Test: Laboratory Tests 12/10/19 06:03: White Blood Count 14.4H, Red Blood Count 3.30L, Hemoglobin 9.8L, Hematocrit 30L, Mean Corpuscular Volume 89, Mean Corpuscular Hemoglobin 30, Mean Corpuscular Hemoglobin Concent 33, Red Cell Distribution Width 14.4, Platelet Count 421H, Mean Platelet Volume 10.8H, Neutrophils (%) (Auto) 84H, Lymphocytes (%) (Auto) 9L, Monocytes (%) (Auto) 6, Eosinophils (%) (Auto) 1, Basophils (%) (Auto) 0, Neutrophils # (Auto) 12.0H, Lymphocytes # (Auto) 1.4, Monocytes # (Auto) 0.9, Eosinophils # (Auto) 0.1, Basophils # (Auto) 0.0, Sodium Level 139, Potassium Level 4.2, Chloride Level 107, Carbon Dioxide Level 23, Anion Gap 9, Blood Urea Nitrogen 22H, Creatinine 0.63, Estimat Glomerular Filtration Rate > 60, BUN/Creatinine Ratio 35, Glucose Level 96, Mean Blood Glucose [Pending], Hemoglobin A1c [Pending], Calcium Level 8.4L, Phosphorus Level 2.2L, Magnesium Level 1.9, Total Bilirubin 0.5, Direct Bilirubin 0.4H, Indirect Bilirubin 0.1, Aspartate Amino Transf (AST/SGOT) 230H, Alanine Aminotransferase (ALT/SGPT) 321H , Alkaline Phosphatase 164H, Total Protein 5.1L, Albumin 2.8L Microbiology 12/09/19 Urine Culture - Final, Complete 3 or more isolates 12/07/19 MRSA Screen - Final, Complete MRSA not isolated 12/07/19 Blood Culture - Preliminary, Resulted No growth Home Meds Active Carvedilol 6.25 Mg Tablet 6.25 Mg PO BID 30 Days Cefdinir 300 Mg Capsule 300 Mg PO BID 5 Days Reported Garlic 400 Mg Tablet 400 Mg PO DAILY Fish Oil 1,200 mg Softgel ([place]-3 Fatty Acids/Fish Oil) 1 Each Capsule 1 Each PO DAILY Vitamin E (Vitamin E (Dl,Tocopheryl Acet)) 200 Unit Capsule 200 Unit PO DAILY Multivitamin 1 Each Tablet 1 Each PO DAILY Assessment/Pt Instructions take medications as prescribed. Complete her course of antibiotics even if you're feeling better. Follow-up with Dr. Patel, pulmonology, for further evaluation of your pulmonary nodules and mediastinal lymphadenopathy. You're being set up with home oxygen. Return with worsening shortness of breath. Discharge Planning: <30 minutes discharge planning Discharge Instructions Discharge Diet: No Restrictions Activity as Tolerated: Yes Discharge Physical Examination Vital Signs Vital Signs Date Time Temp Pulse Resp B/P (MAP) Pulse Ox O2 Delivery O2 Flow Rate FiO2 12/10/19 14:00 12/10/19 12:05 36.3 81 20 92 Room Air 12/10/19 11:19 3.00 12/09/19 19:41 36 General Appearance: No Apparent Distress, WD/WN Respiratory: Lungs Clear, Normal Breath Sounds, No Respiratory Distress Cardiovascular: Regular Rate, Rhythm, No Edema, No Murmur Gastrointestinal: Normal Bowel Sounds, Non Tender, Soft Extremity: Normal Inspection, Non Tender, No Pedal Edema Skin: Normal Color, Warm/Dry Neurologic/Psychiatric: Alert, Oriented x3, No Motor/Sensory Deficits, Normal Mood/Affect Allergies: Coded Allergies: No Known Drug Allergies (Unverified , 12/07/19) Copy Copies To 1: JALIL PACHECO MD Discharge Summary Date of Admission Dec 07, 2019 at 19:35 Date of Discharge Dec 10, 2019 at 14:16 Discharge Date: Dec 10, 2019 Discharge Time: 14:16 Admission Diagnosis Sepsis due to pneumonia Discharge Diagnosis Sepsis due to pneumonia (1) Sepsis due to pneumonia Status: Acute (2) Acute respiratory failure with hypoxia Status: Acute (3) Elevated LFTs Status: Acute (4) Elevated d-dimer Status: Acute (5) Pulmonary nodules Status: Acute (6) Mediastinal lymphadenopathy Status: Acute Clinical Quality Measures DVT/VTE Risk/Contraindication: Risk Factor Score Per Nursin RFS Level Per Nursing on Admit: 3=High FRANCO LAINEZ MD Dec 10, 2019 17:16
== END 2019-12-10 14:16 | disposition home or self-care (01) | DRG 871 ==
LOC: ER 17:30 → ICU 19:35 → 4TH 12-09 21:28
PROVIDERS: ADMIT Internal Medicine; ATTEND Internal Medicine
DX: A41.9 Sepsis, unspecified organism (principal); J18.9 Pneumonia, unspecified organism; J96.01 Acute respiratory failure with hypoxia; J98.8 Other specified respiratory disorders; Z20.828 Contact with and (suspected) exposure to other viral communicable diseases; I10 Essential (primary) hypertension; R59.0 Localized enlarged lymph nodes
CPT/HCPCS: 36415; 71045; 71275; 80048; 80053; 80076; 81000; 82805; 83036; 83605; 83735; 83880; 84100; 84145; 85007; 85025; 85027; 85379; 86141; 87040; 87081; 87088; 87449; 87635; 87899; 93970; 94640; 94660; 94664; 94761; 99291

== ENCOUNTER → 2020-02-06 | Outpatient (CLI) | payer BC ==
[~2020-02-06] MED LIST: CARV6.252 PO; CEFD300C3 PO; GARL400T14 PO; HOLD METFORMIN - RECEIVED CONTRAST 20 ML VIAL IV SCH; IOHEXOL 350 MG/ML 100 ML (OMNIPAQUE 350) VIAL IV ONE; MULT-1136 PO; NS 100 ML (IVPB) BAG IV ONE; OMEG-109 PO; RT-ALBUTEROL SULF 2.5 MG/3 ML PRE-MIX VIAL INH ONE; VITA200C60 PO
[2020-02-06 08:05] LABS: CREATININE SERUM 0.97 MG/DL (0.60-1.30)
--- NOTE | 2020-02-06 08:24 | NUR ---
Unable to obtain PFT due to patient unable to perform test procedures to an acceptable level to obtain accurate results. Patient was cooperative but after multiple attempts with multiple instructions, patient was not performing to necessary standards.
--- NOTE | 2020-02-06 10:01 | Diagnostic Imaging Report ---
EXAMINATION: CT Chest with intravenous contrast. TECHNIQUE: Multiple contiguous axial images were obtained through the chest after the uneventful administration of intravenous contrast. All CT scans use one or more of the following dose optimizing techniques: automated exposure control, MA and/or KvP adjustment based on a patient size and exam type, or iterative reconstruction. HISTORY: Pneumonia. COMPARISON: 12/07/2019. FINDINGS: There has been marked improvement of the groundglass and consolidation in the left lung consistent with resolved infectious process. There are a few areas of scarring in the right lung in association with the previously seen nodules. The largest discrete nodule on today's exam measures 7 mm in the right lower lobe (series 3, image 74). No pleural effusion. No pneumothorax. There is no axillary or supraclavicular lymphadenopathy. There is no mediastinal lymphadenopathy. Heart size is normal. There are no coronary artery calcifications. No pericardial effusion. Aorta is normal in caliber. Limited views of the upper abdomen are unremarkable. There are no suspicious osseous lesions. There is a stable mild L1 compression fracture. IMPRESSION: 1. Marked improvement in left lung pneumonia. 2. Few areas of scarring are present in right lower lobe in the region of previously seen nodules. The largest discrete nodule remaining is 7 mm. Six-month follow-up is recommended to ensure stability. Dictated by: Dictated on workstation # [id number]
== END ==
LOC: RT 07:36
PROVIDERS: ATTEND Nurse Practitioner Family
DX: J18.8 Other pneumonia, unspecified organism (principal); R91.1 Solitary pulmonary nodule
CPT/HCPCS: 36415; 71260; 82565; 84520

== ENCOUNTER → 2020-08-28 | Outpatient (CLI) | payer BC ==
[~2020-08-28] MED LIST changes: +CATHETER FLUSH 10 ML SYR IV PRN; -GARL400T14 PO; +GARL400T15 PO; -RT-ALBUTEROL SULF 2.5 MG/3 ML PRE-MIX VIAL INH ONE
[2020-08-28 07:18] LABS: BUN/CREATININE RATIO 21; CREATININE SERUM 0.86 MG/DL (0.60-1.30); GFR ESTIMATED > 60
--- NOTE | 2020-08-28 08:51 | Diagnostic Imaging Report ---
PROCEDURE: CT chest with contrast only. TECHNIQUE: Multiple contiguous axial images were obtained through the chest after administration of intravenous contrast. Auto Exposure Controls were utilized during the CT exam to meet ALARA standards for radiation dose reduction. INDICATION: Pulmonary nodule. FINDINGS: The previous CT chest exam of 02/06/2020 noted scarring in both lung bases as well as a 7 mm nodular density along the posterior aspect of the right lower lobe. On this exam that abnormal parenchymal density has resolved. Most likely was secondary to atelectasis/infiltrate. The lungs are now generally clear and well aerated. The heart is stable in size when compared to the prior exam and within normal limits. The aorta and the pulmonary arteries were not well opacified, but there is no defect within the pulmonary arteries to indicate a pulmonary embolus. There is no mediastinal or hilar adenopathy. The thyroid gland where visualized is unremarkable. There is no definite breast mass noted. The sections through the upper abdomen failed to show any sign of an acute abnormality. The bone windows are unremarkable for a fracture or for destructive lesion. The long-standing compression fracture of L1 seen previously is again evident and no different. IMPRESSION: 1. The irregular pulmonary nodule along the posterior aspect of the right lower lobe seen previously has resolved. There is no other parenchymal lung mass identified. Both lungs do seem better aerated as well. 2. There is no acute cardiopulmonary abnormality noted. Dictated by: Dictated on workstation # [id number]
== END ==
LOC: RAD 07:45
PROVIDERS: ATTEND Internal Medicine Critical Care Medicine
DX: R91.1 Solitary pulmonary nodule (principal)
CPT/HCPCS: 36415; 71260; 82565; 84520